=== PATIENT | male | born 1945 | race Caucasian/White ===

== ENCOUNTER 2023-11-12 11:47 | Emergency (ER) | payer MEDICARE, OTHER ==
[~2023-11-12 11:47] MED LIST: EPINEPHrine 1:10,000 1 MG/10 ML Syringe ONE; Sodium Bicarbonate 8.4% 50 MEQ/50 ML Syringe ONE
[2023-11-12] MEDS ORDERED: Magnesium Sulfate/Water 50 ML IV ONE (11:48)
[2023-11-12] MEDS: EPINEPHrine 1:10,000 1 MG/10 ML Syringe IVPUSH ONE (11:49)
[2023-11-12] MEDS: Sodium Bicarbonate 8.4% 50 MEQ/50 ML Syringe IVPUSH ONE (11:49)
[2023-11-12 12:57] VITALS: PULSE 0
[2023-11-12 20:05] LABS: HEPATITIS C AB NON-REACTIVE (Non-React)
[2023-11-12 20:06] LABS: HIV RAPID SCREEN RLFX COMFIRM NON-REACTIVE (Non-React)
[2023-11-14 13:42] LABS: HEP B SURFACE AG Negative (Negative)
== END 2023-11-12 13:10 | disposition expired ==
LOC: EDBD → EDUNIT# → JD.ED 11:47
DX: I46.9 Cardiac arrest, cause unspecified (principal); I10 Essential (primary) hypertension; Z79.899 Other long term (current) drug therapy
CPT/HCPCS: 36415; 36680; 86803; 87340; 92950; 99285; 99285-25; G0433; J0171; J3475; J3490